=== PATIENT | female | born 1940 | race Caucasian/White ===

== ENCOUNTER 2017-09-22 05:19 | Inpatient (IN) | payer MEDICARE, BC ==
[2017-09-22] MEDS ORDERED: ceFAZolin 2 GM in Premix Bag 1 BAG IV ONE ×2 (06:00)
[2017-09-22] MEDS ORDERED: Acetaminophen 500 MG Tab PO ONE (06:00)
[2017-09-22] MEDS ORDERED: Scopolamine 1.5 MG Transdermal Patch TOP SCH (06:00)
[2017-09-22] MEDS: Lactated Ringers 1,000 ML IV SCH ×2 (06:36→10:04)
[2017-09-22] MEDS ORDERED: Povidone-Iodine 10% Soln 118.25 ML Bottle ONE (06:49)
[2017-09-22] MEDS ORDERED: Gentamicin 40 MG/ML 2 ML Vial ONE (06:49)
[2017-09-22] MEDS ORDERED: Propofol 200 MG/20 ML SDV ONE ×2 (07:19→08:34)
[2017-09-22] MEDS ORDERED: fentaNYL 100 MCG/2 ML SDV ONE (07:19)
[2017-09-22] MEDS ORDERED: Midazolam 1 MG/ML 2 ML SDV ONE (07:19)
[2017-09-22] MEDS ORDERED: Ropivacaine 49.25 ML, Ketorolac 30 MG, EPINEPHrine 0.5 MG, cloNIDine 80 MCG, Sodium Chl... INJECT ONE ×5 (07:45)
[2017-09-22] MEDS ORDERED: Ketamine 500 MG/5 ML MDV IV SCH (07:45)
[2017-09-22] MEDS ORDERED: Tranexamic Acid 660 MG in Sodium Chloride 0.9% 50 ML IV SCH (07:45)
[2017-09-22] MEDS ORDERED: Lactated Ringers 1,000 ML ONE (08:00)
[2017-09-22] MEDS ORDERED: Magnesium Hydroxide 400 MG/5 ML Susp 30 ML Cup PO PRN (08:59)
[2017-09-22] MEDS ORDERED: Bisacodyl 5 MG Tab PO PRN ×2 (08:59→12:13)
[2017-09-22] MEDS ORDERED: Docusate Sodium 100 MG Cap PO PRN (08:59)
[2017-09-22] MEDS ORDERED: Zolpidem 5 MG Tab PO PRN ×2 (08:59→12:13)
[2017-09-22] MEDS ORDERED: diphenhydrAMINE 50 MG/ML SDV IVPUSH PRN ×2 (08:59→12:13)
[2017-09-22] MEDS ORDERED: Morphine 2 MG/ML Syringe IVPUSH PRN ×2 (08:59→12:13)
[2017-09-22] MEDS ORDERED: traMADol 50 MG Tab PO PRN (08:59)
[2017-09-22] MEDS ORDERED: Sennosides 8.6 MG Tab PO PRN ×2 (08:59→12:13)
[2017-09-22] MEDS ORDERED: Ondansetron 4 MG/2 ML SDV IVPUSH PRN ×2 (08:59→12:13)
[2017-09-22] MEDS ORDERED: Ketorolac 30 MG/ML SDV IVPUSH PRN (08:59)
[2017-09-22] MEDS ORDERED: Aluminum Hydroxide/Magnesium Hydroxide/Simethicone Susp 30 ML Cup PO PRN (08:59)
[2017-09-22] MEDS ORDERED: Naloxone 0.4 MG/ML SDV IVPUSH PRN ×2 (08:59→12:13)
[2017-09-22] MEDS ORDERED: Aspirin 325 MG Tab.EC PO SCH (09:00)
[2017-09-22] MEDS ORDERED: Ketorolac 60 MG/2 ML SDV IVPUSH SCH (09:00)
[2017-09-22] MEDS ORDERED: Acetaminophen 1,000 MG in Premix Bag 1 BAG IV SCH ×2 (09:00→12:30)
[2017-09-22] MEDS ORDERED: Lactated Ringers 1,000 ML IV SCH (09:00)
[2017-09-22] MEDS ORDERED: oxyCODONE 5 MG Tab PO PRN (09:04)
[2017-09-22] MEDS ORDERED: Tranexamic Acid 660 MG in Sodium Chloride 0.9% 50 ML IV ONE (09:45)
--- NOTE | 2017-09-22 10:09 | CR ---
Knee 1V or 2V Rt HISTORY: Postop COMPARISON: 01/01/2017 FINDINGS: Total right knee arthroplasty change. Small amount of fluid and gas in the suprapatellar bu rsa. Curvilinear bony density measuring 9 mm projected along the margin of the medial joint on the AP view. Impression: Right knee arthroplasty change excellent alignment.
[2017-09-22] MEDS ORDERED: Diazepam 5 MG Tab PO PRN (12:13)
[2017-09-22] MEDS: oxyCODONE 5 MG Tab PO PRN ×3 (12:33→23:43)
[2017-09-22] MEDS ORDERED: Ketorolac 30 MG/ML SDV IVPUSH SCH (14:00)
[2017-09-22] MEDS: Sodium Chloride 0.9% 10 ML Syringe FLUSH SCH (15:32)
--- NOTE | 2017-09-22 17:04 | OR ---
DATE OF PROCEDURE: 09/22/2017 PREOPERATIVE DIAGNOSIS: Right knee primary osteoarthritis. POSTOPERATIVE DIAGNOSIS: Right knee primary osteoarthritis. PROCEDURE PERFORMED: Right total knee arthroplasty. ANESTHESIA: Spinal plus conscious sedation. FLUID: Lactated Ringer solution. ESTIMATED BLOOD LOSS: 150 mL. COMPLICATIONS: None. SPECIMENS: None. DISPOSITION: Stable, to PACU. TOURNIQUET TIME: 36 minutes. INSTRUMENTATION: Biomet Vanguard 75 mm fixed cruciate tibial plate, Series EA standard patella 37 mm x 10 mm, anterior stabilized tibial bearing polyethylene 12 mm x 75 mm, and cruciate-retaining femur 70 mm. INDICATION FOR PROCEDURE: The patient was seen in the clinic. She had failed nonoperative treatment. Preoperative imaging confirmed the above-mentioned diagnosis. Risks and benefits of the procedure were explained to the patient. Informed consent was obtained. PROCEDURE IN DETAIL: The patient was seen preoperatively by myself and the anesthesia staff in the preop holding area where the operative site was marked. She was brought to the operative suite by the anesthesia staff where spinal anesthesia was administered plus conscious sedation. A well-padded tourniquet was placed on the right thigh. The right lower extremity was then prepped and draped in a sterile manner. All extremities were found to be well padded. A time-out was called, identifying the correct patient, correct procedure, the correct site, and that antibiotics had begun within an appropriate period of time. The right lower extremity was exsanguinated and the tourniquet was raised to 300 mmHg for 36 minutes and let down during cementing. A midline incision was made 3 fingerbreadths proximal to the patella down to the level of the tibial tubercle. Then, a medial parapatellar arthrotomy was made. The infrapatellar fat pad was removed, as well as a synovectomy was performed, and as much of the medial and lateral meniscus that could be removed were removed. The anterior cruciate ligament was removed. Bovie electrocautery was used to expose the medial tibia. The femur was flexed, and the distal femur was reamed. I then used the intramedullary guide at 5-degree valgus, 9 degree of distal cut, and pinned it in place. I then removed the guide. I then made my distal cut. I then removed the pins. We then used a posterior condylar guide at 3 degrees valgus and pinned that in place. This measured 70 mm. The holes for the chamfer block were drilled. I then inserted the chamfer block and made my anterior and posterior chamfer cuts. I then anteriorized the tibia using a blunt Hohmann and protected the medial collateral ligament with a zero retractor and lateral collateral ligament with sharp Hohmann. I then made my proximal tibial cut using the extramedullary tibial guide, going from the tibial tubercle down to the 2nd metatarsal with approximately 5 degrees posterior slope. I removed this in one en bloc. We then removed some extra ligamentous attachments. I then prepared the tibia by placing the baseplate and then reaming and tamping. We then placed on our femur and then trialed with a 10 and then a 12 which provided good stability in flexion and extension as well as mid flexion. We then removed all of our components, and then I used a lamina packager or packer and weigher medially and laterally and removed the posterior condyles. After the posterior condylar osteophytes were removed, I then removed part of the medial and lateral meniscus posteriorly, then copiously irrigated with saline, then cemented my components in place, and then let it dry in full extension with a 12 mm trial polyethylene bearing. After the cement had hardened, we then controlled any bleeding with Bovie electrocautery, and then I removed any extra cement. I then inserted my final 12 mm polyethylene bearing which provided excellent stability. We then irrigated again and then closed with two #5 Ethibond as well as #1 Stratafix and #2 Stratafix and Prineo followed by a sterile dressing. The patient was then transferred to the PACU in stable condition. Galen Galindo DO /[id number]
[2017-09-22] MEDS: traMADol 50 MG Tab PO PRN (20:59)
[2017-09-22] MEDS: Acetaminophen 1,000 MG in Premix Bag 1 BAG IV SCH (21:00)
[2017-09-22] MEDS: Ketorolac 30 MG/ML SDV IVPUSH SCH (23:38)
[2017-09-23] MEDS: Acetaminophen 1,000 MG in Premix Bag 1 BAG IV SCH ×2 (03:47→09:39)
[2017-09-23] MEDS: Ketorolac 30 MG/ML SDV IVPUSH SCH ×2 (07:50→18:09)
[2017-09-23] MEDS: Sodium Chloride 0.9% 10 ML Syringe FLUSH SCH ×2 (07:51→09:38)
[2017-09-23] MEDS ORDERED: Ondansetron 4 MG Tab.DIS PO PRN (08:29)
[2017-09-23] MEDS: Magnesium Hydroxide 400 MG/5 ML Susp 30 ML Cup PO PRN (09:34)
[2017-09-23] MEDS: Lisinopril 20 MG Tab PO SCH (09:35)
[2017-09-23] MEDS: Hydrochlorothiazide 12.5 MG Cap PO SCH (09:38)
[2017-09-23] MEDS: Aspirin 325 MG Tab.EC PO SCH (09:38)
--- NOTE | 2017-09-23 09:43 | PCM.PN ---
- General Info Date of Service: 09/23/17 Functional Status: Reports: Pain Controlled, Tolerating Diet, Ambulating - Review of Systems General: Denies: Fever Pulmonary: Denies: Shortness of Breath Systems Review Comment:: no acute events overnight other than some very mild confusion. She reports no pain in her knee when she is at rest and moderate pain with activity. No complaints of shortness of breath, chest pain or abdominal pain. Vitals have been stable. - Patient Data Vitals - Most Recent: Last Vital Signs Temp 36.8 C 09/23/17 07:30 Pulse 71 09/23/17 07:30 Resp 16 09/23/17 07:30 BP 136/69 09/23/17 09:40 Pulse Ox 97 09/23/17 07:31 Weight - Most Recent: 62.596 kg I&O - Last 24 Hours: Intake & Output 09/22/17 09/23/17 09/23/17 22:59 06:59 14:59 Intake Total 683 100 720 Output Total 700 550 Balance -17 -450 720 Lab Results Last 24 Hours: Laboratory Results - last 24 hr 09/23/17 09/23/17 Range/Units 06:01 06:01 WBC 9.4 (4.5-11.0) K/uL RBC 3.42 (3.30-5.50) M/uL Hgb 10.2 L D (12.0-15.0) g/dL Hct 30.9 L (36.0-48.0) % MCV 90 (80-98) fL MCH 30 (27-31) pg MCHC 33 (32-36) % Plt Count 187 (150-400) K/uL Neut % (Auto) 69 H (36-66) % Lymph % (Auto) 18 L (24-44) % [place] % (Auto) 12 H (2-6) % Eos % (Auto) 1 L (2-4) % Baso % (Auto) 0 (0-1) % Sodium 136 L (140-148) mmol/L Potassium 4.2 (3.6-5.2) mmol/L Chloride 103 (100-108) mmol/L Carbon Dioxide 28 (21-32) mmol/L Anion Gap 9.2 (5.0-14.0) mmol/L BUN 10 (7-18) mg/dL Creatinine 0.9 (0.6-1.0) mg/dL Est Cr Clr Drug Dosing 45.92 mL/min Estimated GFR (MDRD) > 60 (>60) Glucose 108 H (74-106) mg/dL Calcium 8.6 (8.5-10.1) mg/dL Total Bilirubin 0.6 (0.2-1.0) mg/dL AST 31 (15-37) U/L ALT 27 D (12-78) U/L Alkaline Phosphatase 47 (46-116) U/L Total Protein 5.3 L (6.4-8.2) g/dL Albumin 2.8 L (3.4-5.0) g/dL Globulin 2.5 (2.3-3.5) g/dL Albumin/Globulin Ratio 1.1 L (1.2-2.2) Med Orders - Current: Current Medications Al Hydroxide/Mg Hydroxide (Mag-Al Plus) 30 ml PO Q4H PRN PRN Reason: Constipation Aspirin (Ecotrin) 325 mg PO DAILY [facility] Last Admin: 09/23/17 09:38 Dose: 325 mg Bisacodyl (Dulcolax) 10 mg PO DAILY PRN PRN Reason: Constipation Last Admin: 09/23/17 09:34 Dose: 10 mg Diazepam (Valium.) 5 mg PO Q6H PRN PRN Reason: Spasms Last Admin: 09/23/17 08:12 Dose: 5 mg Diphenhydramine HCl (Benadryl) 25 mg IVPUSH Q4H PRN PRN Reason: Itching Docusate Sodium (Colace) 100 mg PO BID PRN PRN Reason: Constipation Hydrochlorothiazide (Hydrochlorothiazide) 12.5 mg PO DAILY [facility] Last Admin: 09/23/17 09:38 Dose: 12.5 mg Lactated Ringer's (Ringers, Lactated) 1,000 mls @ 100 mls/hr IV ASDIRECTED [facility] Last Admin: 09/22/17 16:18 Dose: 100 mls/hr Acetaminophen 1,000 mg/ Premix 100 mls @ 400 mls/hr IV Q6H [facility] Stop: 09/23/17 10:14 Last Admin: 09/23/17 09:39 Dose: Not Given Ketorolac Tromethamine (Toradol) 15 mg IVPUSH Q8H PRN PRN Reason: Pain Stop: 09/27/17 18:00 Ketorolac Tromethamine (Toradol) 15 mg IVPUSH Q8H [facility] Stop: 09/23/17 15:31 Last Admin: 09/23/17 07:50 Dose: 15 mg Lisinopril (Prinivil) 20 mg PO DAILY [facility] Last Admin: 09/23/17 09:35 Dose: 20 mg Magnesium Hydroxide (Milk Of Magnesia) 30 ml PO BID PRN PRN Reason: Constipation Last Admin: 09/23/17 09:34 Dose: 30 ml Morphine Sulfate (Morphine) 2 mg IVPUSH Q2H PRN PRN Reason: Pain Naloxone HCl (Narcan) 0.1 mg IVPUSH ONETIME PRN PRN Reason: Oversedation Ondansetron HCl (Zofran) 8 mg IVPUSH Q4H PRN PRN Reason: Nausea/Vomiting Ondansetron HCl (Zofran Odt) 4 mg PO Q4H PRN PRN Reason: Nausea/Vomiting Oxycodone HCl (Oxycodone) 5 mg PO Q4H PRN PRN Reason: Pain Last Admin: 09/22/17 23:43 Dose: 5 mg Scopolamine (Transderm-Scop) 1.5 mg TOP Q72H [facility] Stop: 09/25/17 04:00 Last Admin: 09/22/17 06:03 Dose: 1.5 mg Senna (Senna) 8.6 mg PO BID PRN PRN Reason: Constipation Sodium Chloride (Saline Flush) 10 ml FLUSH DAILY [facility] Last Admin: 09/23/17 09:38 Dose: Not Given Tramadol HCl (Ultram) 100 mg PO Q6H PRN PRN Reason: Pain Last Admin: 09/22/17 20:59 Dose: 100 mg Zolpidem Tartrate (Ambien) 5 mg PO BEDTIME PRN PRN Reason: Sleep Discontinued Medications Acetaminophen (Tylenol Extra Strength) 1,000 mg PO ONETIME ONE Stop: 09/22/17 06:01 Last Admin: 09/22/17 06:02 Dose: 1,000 mg Aspirin (Ecotrin) 325 mg PO DAILY [facility] Last Admin: 09/22/17 15:35 Dose: Not Given Bisacodyl (Dulcolax) 10 mg PO DAILY PRN PRN Reason: Constipation Ropivacaine 49.25 ml/Ketorolac Tromethamine 30 mg/Epinephrine HCl 0.5 mg/ Clonidine HCl 80 mcg/ Sodium Chloride 48.45 ml 0 ml INJECT ONETIME ONE Stop: 09/22/17 07:46 Last Admin: 09/22/17 08:04 Dose: 100 ml Diazepam (Valium) 5 mg IVPUSH Q6H PRN PRN Reason: Spasms Diphenhydramine HCl (Benadryl) 25 mg IVPUSH Q4H PRN PRN Reason: Itching Fentanyl (Sublimaze) Confirm Administered Dose 100 mcg .ROUTE .STK-MED ONE Stop: 09/22/17 07:20 Gentamicin Sulfate (Gentamicin) Confirm Administered Dose 240 mg .ROUTE .STK- MED ONE Stop: 09/22/17 06:50 Last Admin: 09/22/17 08:40 Dose: 240 mg Lactated Ringer's (Ringers, Lactated) 1,000 mls @ 0 mls/hr IV ASDIRECTED [facility] PRN Reason: KVO Last Admin: 09/22/17 10:04 Dose: 25 mls/hr Cefazolin Sodium 2 gm/ Premix 20 mls @ 240 mls/hr IV ONETIME ONE Stop: 09/22/17 06:04 Last Admin: 09/22/17 08:03 Dose: 240 mls/hr Tranexamic Acid 660 mg/ Sodium (Chloride) 56.6 mls @ 226.4 mls/hr IV Q3H [facility] Stop: 09/22/17 10:59 Last Admin: 09/22/17 07:20 Dose: 226.4 mls/hr Lactated Ringer's (Ringers, Lactated) Confirm Administered Dose 1,000 mls @ as directed .ROUTE .STK-MED ONE Stop: 09/22/17 08:01 Acetaminophen 1,000 mg/ Premix 100 mls @ 400 mls/hr IV Q6H [facility] Stop: 09/23/17 03:14 Last Admin: 09/22/17 15:35 Dose: Not Given Tranexamic Acid 660 mg/ Sodium (Chloride) 56.6 mls @ 226.4 mls/hr IV ONETIME ONE Stop: 09/22/17 09:59 Last Admin: 09/22/17 09:33 Dose: 226.4 mls/hr Acetaminophen 1,000 mg/ Premix 100 mls @ 400 mls/hr IV Q6H [facility] Stop: 09/23/17 06:44 Last Admin: 09/22/17 15:40 Dose: 400 mls/hr Ketamine HCl (Ketalar) 27 mg IV ASDIRECTED [facility] Ketorolac Tromethamine (Toradol) 30 mg IVPUSH Q8H PRN PRN Reason: Pain Stop: 09/27/17 08:59 Ketorolac Tromethamine (Toradol) 30 mg IVPUSH Q8H [facility] Stop: 09/23/17 09:01 Last Admin: 09/22/17 15:35 Dose: Not Given Ketorolac Tromethamine (Toradol) 15 mg IVPUSH Q8H [facility] Stop: 09/23/17 14:01 Last Admin: 09/22/17 15:33 Dose: 15 mg Magnesium Hydroxide (Milk Of Magnesia) 30 ml PO BID PRN PRN Reason: Constipation Midazolam HCl (Versed 1 Mg/Ml) Confirm Administered Dose 2 mg .ROUTE .STK-MED ONE Stop: 09/22/17 07:20 Morphine Sulfate (Morphine) 2 mg IVPUSH Q2H PRN PRN Reason: Pain Naloxone HCl (Narcan) 0.1 mg IVPUSH ONETIME PRN PRN Reason: Oversedation Ondansetron HCl (Zofran) 8 mg IVPUSH Q4H PRN PRN Reason: Nausea/Vomiting Oxycodone HCl (Oxycodone) 5 mg PO Q4H PRN PRN Reason: Pain Povidone Iodine (Betadine 10% Soln) Confirm Administered Dose 1 ml .ROUTE .STK- MED ONE Stop: 09/22/17 06:50 Last Admin: 09/22/17 08:42 Dose: 1 ml Propofol (Diprivan 20 Ml) Confirm Administered Dose 200 mg .ROUTE .STK-MED ONE Stop: 09/22/17 07:20 Propofol (Diprivan 20 Ml) Confirm Administered Dose 200 mg .ROUTE .STK-MED ONE Stop: 09/22/17 08:35 Senna (Senna) 8.6 mg PO BID PRN PRN Reason: Constipation Tramadol HCl (Ultram) 100 mg PO Q6H PRN PRN Reason: Pain Zolpidem Tartrate (Ambien) 5 mg PO BEDTIME PRN PRN Reason: Sleep - Exam Quality Assessment: No: Supplemental Oxygen General: Alert, Oriented, Cooperative, No Acute Distress Neck: Supple Lungs: Clear to Auscultation, Normal Respiratory Effort Cardiovascular: Regular Rate, Regular Rhythm. No: Murmurs GI/Abdominal Exam: Normal Bowel Sounds, Soft, No Distention Extremities: No Pedal Edema, Other (right knee wrapped in PATT from ankle to above the knee. Able to wiggle the toes and move ankle with normal ROM) Psy/Mental Status: Alert, Normal Affect - Problem List Review Problem List Initiated/Reviewed/Updated: Yes - Plan Plan:: ASSESSMENT AND PLAN - Right knee osteoarthritis status post total knee arthroplasty - clinically doing well at this time. Working with physical therapy. Pain controlled. -Postop cares per orthopedic team Essential hypertension - blood pressure stable yesterday with slight rise this morning. -Restart home meds Denis Guerra M.D.
[2017-09-23] MEDS: oxyCODONE 5 MG Tab PO PRN ×3 (10:58→19:39)
[2017-09-23] MEDS ORDERED: Ketorolac 30 MG/ML SDV IVPUSH PRN (22:00)
[2017-09-24] MEDS: oxyCODONE 5 MG Tab PO PRN ×4 (00:32→20:51)
[2017-09-24] MEDS: Magnesium Hydroxide 400 MG/5 ML Susp 30 ML Cup PO PRN (08:20)
[2017-09-24] MEDS: Hydrochlorothiazide 12.5 MG Cap PO SCH (09:41)
[2017-09-24] MEDS: Lisinopril 20 MG Tab PO SCH (09:41)
[2017-09-24] MEDS: Aspirin 325 MG Tab.EC PO SCH (09:41)
[2017-09-24] MEDS: traMADol 50 MG Tab PO PRN ×2 (10:17→20:55)
--- NOTE | 2017-09-24 11:07 | PCM.PN ---
- General Info Date of Service: 09/24/17 Admission Dx/Problem (Free Text): patient is status postop day 2 of left total knee replacement. She is doing very well. Patient continues to request PT OT for strengthening. She does have some pain with ambulation. She is concerned still regarding pain being at home by herself and ambulating without any assistance at this time. Patient continues to plan to go to a long-term after her stay. Functional Status: Reports: Pain Controlled, Tolerating Diet, Ambulating, Urinating - Review of Systems General: Reports: No Symptoms Skin: Reports: No Symptoms - Patient Data Vitals - Most Recent: Last Vital Signs Temp 36.6 C 09/24/17 07:00 Pulse 79 09/24/17 07:00 Resp 16 09/24/17 07:00 BP 157/65 H 09/24/17 09:41 Pulse Ox 97 09/24/17 07:00 Weight - Most Recent: 138 lb 0.009 oz I&O - Last 24 Hours: Intake & Output 09/23/17 09/24/17 09/24/17 22:59 06:59 14:59 Intake Total 240 480 320 Output Total 950 350 550 Balance -710 130 -230 Lab Results Last 24 Hours: Laboratory Results - last 24 hr 09/24/17 09/24/17 Range/Units 05:00 05:00 WBC 10.0 (4.5-11.0) K/uL RBC 3.26 L (3.30-5.50) M/uL Hgb 9.6 L (12.0-15.0) g/dL Hct 29.2 L (36.0-48.0) % MCV 90 (80-98) fL MCH 29 (27-31) pg MCHC 33 (32-36) % Plt Count 179 (150-400) K/uL Neut % (Auto) 69 H (36-66) % Lymph % (Auto) 16 L (24-44) % [place] % (Auto) 14 H (2-6) % Eos % (Auto) 0 L (2-4) % Baso % (Auto) 0 (0-1) % Sodium 136 L (140-148) mmol/L Potassium 3.7 (3.6-5.2) mmol/L Chloride 103 (100-108) mmol/L Carbon Dioxide 29 (21-32) mmol/L Anion Gap 7.7 (5.0-14.0) mmol/L BUN 9 (7-18) mg/dL Creatinine 0.8 (0.6-1.0) mg/dL Est Cr Clr Drug Dosing 52.04 mL/min Estimated GFR (MDRD) > 60 (>60) Glucose 111 H (74-106) mg/dL Calcium 8.5 (8.5-10.1) mg/dL Total Bilirubin 0.5 (0.2-1.0) mg/dL AST 30 (15-37) U/L ALT 25 (12-78) U/L Alkaline Phosphatase 46 (46-116) U/L Total Protein 5.3 L (6.4-8.2) g/dL Albumin 2.6 L (3.4-5.0) g/dL Globulin 2.7 (2.3-3.5) g/dL Albumin/Globulin Ratio 1.0 L (1.2-2.2) Med Orders - Current: Current Medications Al Hydroxide/Mg Hydroxide (Mag-Al Plus) 30 ml PO Q4H PRN PRN Reason: Constipation Aspirin (Ecotrin) 325 mg PO DAILY [facility] Last Admin: 09/24/17 09:41 Dose: 325 mg Bisacodyl (Dulcolax) 10 mg PO DAILY PRN PRN Reason: Constipation Last Admin: 09/23/17 09:34 Dose: 10 mg Diazepam (Valium.) 5 mg PO Q6H PRN PRN Reason: Spasms Last Admin: 09/23/17 08:12 Dose: 5 mg Docusate Sodium (Colace) 100 mg PO BID PRN PRN Reason: Constipation Last Admin: 09/24/17 08:20 Dose: 100 mg Hydrochlorothiazide (Hydrochlorothiazide) 12.5 mg PO DAILY [facility] Last Admin: 09/24/17 09:41 Dose: 12.5 mg Lisinopril (Prinivil) 20 mg PO DAILY [facility] Last Admin: 09/24/17 09:41 Dose: 20 mg Magnesium Hydroxide (Milk Of Magnesia) 30 ml PO BID PRN PRN Reason: Constipation Last Admin: 09/24/17 08:20 Dose: 30 ml Ondansetron HCl (Zofran Odt) 4 mg PO Q4H PRN PRN Reason: Nausea/Vomiting Oxycodone HCl (Oxycodone) 5 mg PO Q4H PRN PRN Reason: Pain Last Admin: 09/24/17 08:20 Dose: 5 mg Senna (Senna) 8.6 mg PO BID PRN PRN Reason: Constipation Tramadol HCl (Ultram) 100 mg PO Q6H PRN PRN Reason: Pain Last Admin: 09/24/17 10:17 Dose: 100 mg Zolpidem Tartrate (Ambien) 5 mg PO BEDTIME PRN PRN Reason: Sleep Discontinued Medications Acetaminophen (Tylenol Extra Strength) 1,000 mg PO ONETIME ONE Stop: 09/22/17 06:01 Last Admin: 09/22/17 06:02 Dose: 1,000 mg Aspirin (Ecotrin) 325 mg PO DAILY [facility] Last Admin: 09/22/17 15:35 Dose: Not Given Bisacodyl (Dulcolax) 10 mg PO DAILY PRN PRN Reason: Constipation Ropivacaine 49.25 ml/Ketorolac Tromethamine 30 mg/Epinephrine HCl 0.5 mg/ Clonidine HCl 80 mcg/ Sodium Chloride 48.45 ml 0 ml INJECT ONETIME ONE Stop: 09/22/17 07:46 Last Admin: 09/22/17 08:04 Dose: 100 ml Diazepam (Valium) 5 mg IVPUSH Q6H PRN PRN Reason: Spasms Diphenhydramine HCl (Benadryl) 25 mg IVPUSH Q4H PRN PRN Reason: Itching Diphenhydramine HCl (Benadryl) 25 mg IVPUSH Q4H PRN PRN Reason: Itching Fentanyl (Sublimaze) Confirm Administered Dose 100 mcg .ROUTE .STK-MED ONE Stop: 09/22/17 07:20 Gentamicin Sulfate (Gentamicin) Confirm Administered Dose 240 mg .ROUTE .STK- MED ONE Stop: 09/22/17 06:50 Last Admin: 09/22/17 08:40 Dose: 240 mg Lactated Ringer's (Ringers, Lactated) 1,000 mls @ 0 mls/hr IV ASDIRECTED [facility] PRN Reason: KVO Last Admin: 09/22/17 10:04 Dose: 25 mls/hr Cefazolin Sodium 2 gm/ Premix 20 mls @ 240 mls/hr IV ONETIME ONE Stop: 09/22/17 06:04 Last Admin: 09/22/17 08:03 Dose: 240 mls/hr Tranexamic Acid 660 mg/ Sodium (Chloride) 56.6 mls @ 226.4 mls/hr IV Q3H [facility] Stop: 09/22/17 10:59 Last Admin: 09/22/17 07:20 Dose: 226.4 mls/hr Lactated Ringer's (Ringers, Lactated) Confirm Administered Dose 1,000 mls @ as directed .ROUTE .STK-MED ONE Stop: 09/22/17 08:01 Acetaminophen 1,000 mg/ Premix 100 mls @ 400 mls/hr IV Q6H [facility] Stop: 09/23/17 03:14 Last Admin: 09/22/17 15:35 Dose: Not Given Lactated Ringer's (Ringers, Lactated) 1,000 mls @ 100 mls/hr IV ASDIRECTED [facility] Last Admin: 09/22/17 16:18 Dose: 100 mls/hr Tranexamic Acid 660 mg/ Sodium (Chloride) 56.6 mls @ 226.4 mls/hr IV ONETIME ONE Stop: 09/22/17 09:59 Last Admin: 09/22/17 09:33 Dose: 226.4 mls/hr Acetaminophen 1,000 mg/ Premix 100 mls @ 400 mls/hr IV Q6H [facility] Stop: 09/23/17 06:44 Last Admin: 09/22/17 15:40 Dose: 400 mls/hr Acetaminophen 1,000 mg/ Premix 100 mls @ 400 mls/hr IV Q6H [facility] Stop: 09/23/17 10:14 Last Admin: 09/23/17 09:39 Dose: Not Given Ketamine HCl (Ketalar) 27 mg IV ASDIRECTED [facility] Ketorolac Tromethamine (Toradol) 30 mg IVPUSH Q8H PRN PRN Reason: Pain Stop: 09/27/17 08:59 Ketorolac Tromethamine (Toradol) 30 mg IVPUSH Q8H [facility] Stop: 09/23/17 09:01 Last Admin: 09/22/17 15:35 Dose: Not Given Ketorolac Tromethamine (Toradol) 15 mg IVPUSH Q8H PRN PRN Reason: Pain Stop: 09/27/17 18:00 Ketorolac Tromethamine (Toradol) 15 mg IVPUSH Q8H [facility] Stop: 09/23/17 14:01 Last Admin: 09/22/17 15:33 Dose: 15 mg Ketorolac Tromethamine (Toradol) 15 mg IVPUSH Q8H [facility] Stop: 09/23/17 15:31 Last Admin: 09/23/17 18:09 Dose: Not Given Magnesium Hydroxide (Milk Of Magnesia) 30 ml PO BID PRN PRN Reason: Constipation Midazolam HCl (Versed 1 Mg/Ml) Confirm Administered Dose 2 mg .ROUTE .STK-MED ONE Stop: 09/22/17 07:20 Morphine Sulfate (Morphine) 2 mg IVPUSH Q2H PRN PRN Reason: Pain Morphine Sulfate (Morphine) 2 mg IVPUSH Q2H PRN PRN Reason: Pain Naloxone HCl (Narcan) 0.1 mg IVPUSH ONETIME PRN PRN Reason: Oversedation Naloxone HCl (Narcan) 0.1 mg IVPUSH ONETIME PRN PRN Reason: Oversedation Ondansetron HCl (Zofran) 8 mg IVPUSH Q4H PRN PRN Reason: Nausea/Vomiting Ondansetron HCl (Zofran) 8 mg IVPUSH Q4H PRN PRN Reason: Nausea/Vomiting Oxycodone HCl (Oxycodone) 5 mg PO Q4H PRN PRN Reason: Pain Povidone Iodine (Betadine 10% Soln) Confirm Administered Dose 1 ml .ROUTE .STK- MED ONE Stop: 09/22/17 06:50 Last Admin: 09/22/17 08:42 Dose: 1 ml Propofol (Diprivan 20 Ml) Confirm Administered Dose 200 mg .ROUTE .STK-MED ONE Stop: 09/22/17 07:20 Propofol (Diprivan 20 Ml) Confirm Administered Dose 200 mg .ROUTE .STK-MED ONE Stop: 09/22/17 08:35 Scopolamine (Transderm-Scop) 1.5 mg TOP Q72H [facility] Stop: 09/25/17 04:00 Last Admin: 09/22/17 06:03 Dose: 1.5 mg Senna (Senna) 8.6 mg PO BID PRN PRN Reason: Constipation Sodium Chloride (Saline Flush) 10 ml FLUSH DAILY [facility] Last Admin: 09/23/17 09:38 Dose: Not Given Tramadol HCl (Ultram) 100 mg PO Q6H PRN PRN Reason: Pain Zolpidem Tartrate (Ambien) 5 mg PO BEDTIME PRN PRN Reason: Sleep - Exam General: Alert, Oriented Extremities: Normal Inspection, Normal Range of Motion, No Pedal Edema, Pedal Edema Peripheral Pulses: 2+: Dorsalis Pedis (L), Dorsalis Pedis (R) Skin: Warm, Dry, Intact Wound/Incisions: Healing Well, Dressing Dry and Intact Neurological: No New Focal Deficit - Problem List Review Problem List Initiated/Reviewed/Updated: Yes - Plan Plan:: ASSESSMENT AND PLAN - Right knee osteoarthritis status post total knee arthroplasty - clinically doing well at this time. Working with physical therapy. Pain controlled. -we'll plan to send her to a [facility] facility tomorrow due to her being at home by herself. Patient was in agreement with this plan will follow-up tomorrow.
[2017-09-25] MEDS: traMADol 50 MG Tab PO PRN (06:54)
[2017-09-25 07:55] VITALS: BP 118/56
--- NOTE | 2017-09-25 07:57 | PCM.DCSUM1 ---
Discharge Summary - Hospital Course Free Text/Narrative:: Patient is Satus POD 3 of a right total knee replacement. She is doing well. She lives at home by herself and is being dcd to correction today. Pain is under control with oral pain medication at this time. - Discharge Data Discharge Date: 09/25/17 Discharge Disposition: DC/Tfer to SNF 03 Condition: Good - Patient Summary/Data Consults: Consultations 09/22/17 08:59 Consult to Physician [CONS] Routine Consulting Provider: Denis Guerra Call Completed to Consulting Physician: Yes OT Evaluation and Treatment [CONS] Routine Please Evaluate and Treat. OT Reason for Consult: Strengthening This query below is only for informational purposes and is not editable. PT Evaluation and Treatment [CONS] Routine Please Evaluate and Treat. PT Reason for Consult: Strengthening This query below is only for informational purposes and is not editable. Respiratory Care Assess and Treatment [CONS] Routine Comment: Physician Instructions: Post-op Pneumonia Prevention - Patient Instructions Diet: Usual Diet as Tolerated Activity: Apply Ice, As Tolerated Driving: Do Not Drive Showering/Bathing: May Shower, No Tub Bathing/Swimming Wound/Incision Care: Keep Operative Site/Wound Site Clean and Dry Notify Provider of: Fever, Increased Pain, Swelling and Redness, Drainage, Nausea and/or Vomiting - Discharge Plan Prescriptions/Med Rec: Aspirin [Ecotrin] 325 mg PO DAILY #30 tab.ec oxyCODONE 5 mg PO Q4H PRN #60 tablet PRN Reason: Pain traMADol [Ultram] 100 mg PO Q6H PRN #60 tablet PRN Reason: Pain Home Medications: Home Meds Aspirin 81 mg PO DAILY 12/23/16 [History] Calcium Carbonate/Vitamin D3 [Calcium 600 + Vit D 200] 1 tab PO DAILY 12/23/16 [ History] Glucosam/Chondroit/C/Manganese [Cosamin Ds Capsule] 1 tab PO BID 12/23/16 [ History] Lisinopril/Hydrochlorothiazide [Lisinopril-Hctz 20-12.5 mg Tab] 1 tab PO DAILY 12/23/16 [History] Multivitamin [Multivitamins] 1 tab PO DAILY 12/23/16 [History] Niacin 1 tab PO BID 12/23/16 [History] Triamcinolone Acetonide [Kenalog 0.1% Crm] 1 strip TOP BID 12/23/16 [History] Vitamin B Complex [B Complex] 1 tab PO DAILY 12/23/16 [History] Acetaminophen [Extra Strength Non-Aspirin] 1,000 mg PO BID PRN 09/22/17 [History ] Aspirin [Ecotrin] 325 mg PO DAILY #30 tab.ec 09/25/17 [Rx] oxyCODONE 5 mg PO Q4H PRN #60 tablet 09/25/17 [Rx] traMADol [Ultram] 100 mg PO Q6H PRN #60 tablet 09/25/17 [Rx] Patient Handouts: Total Knee Replacement, Care After, [id number] - Discharge Summary/Plan Comment DC Time >30 min.: Yes Discharge Summary/Plan Comment: Patient will be dcd to correction today. She is to follow up in 2 weeks with the ortho clinic. She is to take ultram and oxycodone as needed. - Patient Data Vitals - Most Recent: Last Vital Signs Temp 36.9 C 09/25/17 02:58 Pulse 87 09/25/17 02:58 Resp 16 09/25/17 02:58 BP 136/50 L 09/25/17 02:58 Pulse Ox 96 09/25/17 02:58 Weight - Most Recent: 138 lb 0.009 oz I&O - Last 24 hours: Intake & Output 09/24/17 09/25/17 09/25/17 22:59 06:59 14:59 Intake Total 240 240 Output Total 225 Balance -225 240 240 Lab Results - Last 24 hrs: Laboratory Results - last 24 hr 09/25/17 09/25/17 Range/Units 05:51 05:51 WBC 10.4 (4.5-11.0) K/uL RBC 3.13 L (3.30-5.50) M/uL Hgb 9.2 L (12.0-15.0) g/dL Hct 28.5 L (36.0-48.0) % MCV 91 (80-98) fL MCH 29 (27-31) pg MCHC 32 (32-36) % Plt Count 170 (150-400) K/uL Neut % (Auto) 66 (36-66) % Lymph % (Auto) 16 L (24-44) % [place] % (Auto) 17 H (2-6) % Eos % (Auto) 1 L (2-4) % Baso % (Auto) 0 (0-1) % Sodium 136 L (140-148) mmol/L Potassium 4.0 (3.6-5.2) mmol/L Chloride 102 (100-108) mmol/L Carbon Dioxide 30 (21-32) mmol/L Anion Gap 8.0 (5.0-14.0) mmol/L BUN 13 (7-18) mg/dL Creatinine 0.8 (0.6-1.0) mg/dL Est Cr Clr Drug Dosing 52.04 mL/min Estimated GFR (MDRD) > 60 (>60) Glucose 94 (74-106) mg/dL Calcium 8.3 L (8.5-10.1) mg/dL Total Bilirubin 0.6 (0.2-1.0) mg/dL AST 40 H (15-37) U/L ALT 34 (12-78) U/L Alkaline Phosphatase 48 (46-116) U/L Total Protein 5.3 L (6.4-8.2) g/dL Albumin 2.4 L (3.4-5.0) g/dL Globulin 2.9 (2.3-3.5) g/dL Albumin/Globulin Ratio 0.8 L (1.2-2.2) Med Orders - Current: Current Medications Al Hydroxide/Mg Hydroxide (Mag-Al Plus) 30 ml PO Q4H PRN PRN Reason: Constipation Aspirin (Ecotrin) 325 mg PO DAILY [facility] Last Admin: 09/24/17 09:41 Dose: 325 mg Bisacodyl (Dulcolax) 10 mg PO DAILY PRN PRN Reason: Constipation Last Admin: 09/23/17 09:34 Dose: 10 mg Diazepam (Valium.) 5 mg PO Q6H PRN PRN Reason: Spasms Last Admin: 09/23/17 08:12 Dose: 5 mg Docusate Sodium (Colace) 100 mg PO BID PRN PRN Reason: Constipation Last Admin: 09/24/17 08:20 Dose: 100 mg Hydrochlorothiazide (Hydrochlorothiazide) 12.5 mg PO DAILY [facility] Last Admin: 09/24/17 09:41 Dose: 12.5 mg Lisinopril (Prinivil) 20 mg PO DAILY [facility] Last Admin: 09/24/17 09:41 Dose: 20 mg Magnesium Hydroxide (Milk Of Magnesia) 30 ml PO BID PRN PRN Reason: Constipation Last Admin: 09/24/17 08:20 Dose: 30 ml Ondansetron HCl (Zofran Odt) 4 mg PO Q4H PRN PRN Reason: Nausea/Vomiting Oxycodone HCl (Oxycodone) 5 mg PO Q4H PRN PRN Reason: Pain Last Admin: 09/24/17 16:21 Dose: 5 mg Senna (Senna) 8.6 mg PO BID PRN PRN Reason: Constipation Tramadol HCl (Ultram) 100 mg PO Q6H PRN PRN Reason: Pain Last Admin: 09/25/17 06:54 Dose: 100 mg Zolpidem Tartrate (Ambien) 5 mg PO BEDTIME PRN PRN Reason: Sleep Discontinued Medications Acetaminophen (Tylenol Extra Strength) 1,000 mg PO ONETIME ONE Stop: 09/22/17 06:01 Last Admin: 09/22/17 06:02 Dose: 1,000 mg Aspirin (Ecotrin) 325 mg PO DAILY [facility] Last Admin: 09/22/17 15:35 Dose: Not Given Bisacodyl (Dulcolax) 10 mg PO DAILY PRN PRN Reason: Constipation Ropivacaine 49.25 ml/Ketorolac Tromethamine 30 mg/Epinephrine HCl 0.5 mg/ Clonidine HCl 80 mcg/ Sodium Chloride 48.45 ml 0 ml INJECT ONETIME ONE Stop: 09/22/17 07:46 Last Admin: 09/22/17 08:04 Dose: 100 ml Diazepam (Valium) 5 mg IVPUSH Q6H PRN PRN Reason: Spasms Diphenhydramine HCl (Benadryl) 25 mg IVPUSH Q4H PRN PRN Reason: Itching Diphenhydramine HCl (Benadryl) 25 mg IVPUSH Q4H PRN PRN Reason: Itching Fentanyl (Sublimaze) Confirm Administered Dose 100 mcg .ROUTE .STK-MED ONE Stop: 09/22/17 07:20 Gentamicin Sulfate (Gentamicin) Confirm Administered Dose 240 mg .ROUTE .STK- MED ONE Stop: 09/22/17 06:50 Last Admin: 09/22/17 08:40 Dose: 240 mg Lactated Ringer's (Ringers, Lactated) 1,000 mls @ 0 mls/hr IV ASDIRECTED [facility] PRN Reason: KVO Last Admin: 09/22/17 10:04 Dose: 25 mls/hr Cefazolin Sodium 2 gm/ Premix 20 mls @ 240 mls/hr IV ONETIME ONE Stop: 09/22/17 06:04 Last Admin: 09/22/17 08:03 Dose: 240 mls/hr Tranexamic Acid 660 mg/ Sodium (Chloride) 56.6 mls @ 226.4 mls/hr IV Q3H [facility] Stop: 09/22/17 10:59 Last Admin: 09/22/17 07:20 Dose: 226.4 mls/hr Lactated Ringer's (Ringers, Lactated) Confirm Administered Dose 1,000 mls @ as directed .ROUTE .STK-MED ONE Stop: 09/22/17 08:01 Acetaminophen 1,000 mg/ Premix 100 mls @ 400 mls/hr IV Q6H [facility] Stop: 09/23/17 03:14 Last Admin: 09/22/17 15:35 Dose: Not Given Lactated Ringer's (Ringers, Lactated) 1,000 mls @ 100 mls/hr IV ASDIRECTED [facility] Last Admin: 09/22/17 16:18 Dose: 100 mls/hr Tranexamic Acid 660 mg/ Sodium (Chloride) 56.6 mls @ 226.4 mls/hr IV ONETIME ONE Stop: 09/22/17 09:59 Last Admin: 09/22/17 09:33 Dose: 226.4 mls/hr Acetaminophen 1,000 mg/ Premix 100 mls @ 400 mls/hr IV Q6H [facility] Stop: 09/23/17 06:44 Last Admin: 09/22/17 15:40 Dose: 400 mls/hr Acetaminophen 1,000 mg/ Premix 100 mls @ 400 mls/hr IV Q6H [facility] Stop: 09/23/17 10:14 Last Admin: 09/23/17 09:39 Dose: Not Given Ketamine HCl (Ketalar) 27 mg IV ASDIRECTED [facility] Ketorolac Tromethamine (Toradol) 30 mg IVPUSH Q8H PRN PRN Reason: Pain Stop: 09/27/17 08:59 Ketorolac Tromethamine (Toradol) 30 mg IVPUSH Q8H [facility] Stop: 09/23/17 09:01 Last Admin: 09/22/17 15:35 Dose: Not Given Ketorolac Tromethamine (Toradol) 15 mg IVPUSH Q8H PRN PRN Reason: Pain Stop: 09/27/17 18:00 Ketorolac Tromethamine (Toradol) 15 mg IVPUSH Q8H [facility] Stop: 09/23/17 14:01 Last Admin: 09/22/17 15:33 Dose: 15 mg Ketorolac Tromethamine (Toradol) 15 mg IVPUSH Q8H [facility] Stop: 09/23/17 15:31 Last Admin: 09/23/17 18:09 Dose: Not Given Magnesium Hydroxide (Milk Of Magnesia) 30 ml PO BID PRN PRN Reason: Constipation Midazolam HCl (Versed 1 Mg/Ml) Confirm Administered Dose 2 mg .ROUTE .STK-MED ONE Stop: 09/22/17 07:20 Morphine Sulfate (Morphine) 2 mg IVPUSH Q2H PRN PRN Reason: Pain Morphine Sulfate (Morphine) 2 mg IVPUSH Q2H PRN PRN Reason: Pain Naloxone HCl (Narcan) 0.1 mg IVPUSH ONETIME PRN PRN Reason: Oversedation Naloxone HCl (Narcan) 0.1 mg IVPUSH ONETIME PRN PRN Reason: Oversedation Ondansetron HCl (Zofran) 8 mg IVPUSH Q4H PRN PRN Reason: Nausea/Vomiting Ondansetron HCl (Zofran) 8 mg IVPUSH Q4H PRN PRN Reason: Nausea/Vomiting Oxycodone HCl (Oxycodone) 5 mg PO Q4H PRN PRN Reason: Pain Povidone Iodine (Betadine 10% Soln) Confirm Administered Dose 1 ml .ROUTE .STK- MED ONE Stop: 09/22/17 06:50 Last Admin: 09/22/17 08:42 Dose: 1 ml Propofol (Diprivan 20 Ml) Confirm Administered Dose 200 mg .ROUTE .STK-MED ONE Stop: 09/22/17 07:20 Propofol (Diprivan 20 Ml) Confirm Administered Dose 200 mg .ROUTE .STK-MED ONE Stop: 09/22/17 08:35 Scopolamine (Transderm-Scop) 1.5 mg TOP Q72H [facility] Stop: 09/25/17 04:00 Last Admin: 09/22/17 06:03 Dose: 1.5 mg Senna (Senna) 8.6 mg PO BID PRN PRN Reason: Constipation Sodium Chloride (Saline Flush) 10 ml FLUSH DAILY [facility] Last Admin: 09/23/17 09:38 Dose: Not Given Tramadol HCl (Ultram) 100 mg PO Q6H PRN PRN Reason: Pain Zolpidem Tartrate (Ambien) 5 mg PO BEDTIME PRN PRN Reason: Sleep - Exam General: Reports: Alert, Oriented Back Exam: Reports: Normal Inspection Extremities: Normal Inspection Skin: Reports: Warm, Dry, Intact Wound/Incisions: Reports: Healing Well, Dressing Dry and Intact Neurological: Reports: No New Focal Deficit Psy/Mental Status: Reports: Alert *Q Meaningful Use (DIS) - VTE *Q VTE Criteria *Q: - Stroke *Q Stroke Criteria *Q: - AMI *Q AMI Criteria *Q:
[2017-09-25] MEDS: Hydrochlorothiazide 12.5 MG Cap PO SCH (08:39)
[2017-09-25] MEDS: Lisinopril 20 MG Tab PO SCH (08:39)
[2017-09-25] MEDS: Aspirin 325 MG Tab.EC PO SCH (08:39)
== END 2017-09-25 10:25 | DRG 470 ==
LOC: JP.MS 05:19 → JP.SDS 05:19 → JP.MS 10:03 → EDSTATUS 11:00
PROVIDERS: ADMIT Orthopaedic Surgery; ATTEND Orthopaedic Surgery
PROC: 0SRC0J9 Replacement of Right Knee Joint with Synthetic Substitute, Cemented, Open Approach (ICD-10-PCS; principal; 2017-09-22)
DX: M17.11 Unilateral primary osteoarthritis, right knee (principal); Z79.82 Long term (current) use of aspirin; I10 Essential (primary) hypertension
CPT/HCPCS: 36415; 73560-26-RT; 73560-RT; 80053; 85025; 94762; 97110-GP; 97116-GP; 97162-GP; 97165-GO; 97530-GP; 97535-GP; 97760-GP; A9270-GY; C1713; C1776; J0131; J0171; J0690; J0735; J1580; J1885; J2250; J2704; J2795; J3010; J7050; J7120

== ENCOUNTER 2017-11-01 18:05 | Emergency (ER) | payer MEDICARE, BC ==
[2017-11-01] MEDS ORDERED: Ondansetron 4 MG/2 ML SDV IVPUSH ONE (18:41)
[2017-11-01] MEDS ORDERED: Sodium Chloride 0.9% 10 ML Syringe FLUSH PRN (18:41)
[2017-11-01] MEDS ORDERED: Lactated Ringers 1,000 ML IV SCH ×2 (18:45→21:15)
--- NOTE | 2017-11-01 18:45 | EDM.PDOC ---
ED HPI GENERAL MEDICAL PROBLEM - General Chief Complaint: Gastrointestinal Problem Stated Complaint: DIARRHEA;DEHYDRATION Time Seen by Provider: 11/01/17 18:38 Source of Information: Reports: Patient, Family, RN Notes Reviewed History Limitations: Reports: No Limitations - History of Present Illness INITIAL COMMENTS - FREE TEXT/NARRATIVE: 77-year-old female presents to emergency department today complaint of nausea vomiting and diarrhea, she states she got ill mainly this morning did have pretty significant reflux this morning but that has improved complaints of a headache has not had any fevers no chest pain she does feel short of breath at times no sick contacts that she is aware of - Related Data Allergies Allergy/AdvReac Type Severity Reaction Status Date / Time No Known Allergies Allergy Verified 11/01/17 18:27 Home Meds: Home Meds Calcium Carbonate/Vitamin D3 [Calcium 600 + Vit D 200] 1 tab PO DAILY 12/23/16 [ History] Glucosam/Chondroit/C/Manganese [Cosamin Ds Capsule] 1 tab PO BID 12/23/16 [ History] Lisinopril/Hydrochlorothiazide [Lisinopril-Hctz 20-12.5 mg Tab] 1 tab PO DAILY 12/23/16 [History] Multivitamin [Multivitamins] 1 tab PO DAILY 12/23/16 [History] Niacin 1 tab PO BID 12/23/16 [History] Triamcinolone Acetonide [Kenalog 0.1% Crm] 1 strip TOP BID PRN 12/23/16 [History ] Vitamin B Complex [B Complex] 1 tab PO Q48H 12/23/16 [History] Acetaminophen [Extra Strength Non-Aspirin] 1,000 mg PO BID PRN 09/22/17 [History ] Aspirin [Lo-Dose Aspirin EC] 81 mg PO DAILY 11/01/17 [History] Past Medical History HEENT History: Reports: Impaired Vision Cardiovascular History: Reports: Hypertension Gastrointestinal History: Reports: Colon Polyp TAKER OFF HEMP FIBER History: Reports: Musculoskeletal History: Reports: Other (See Below) Other Musculoskeletal History: R knee pain Hematologic History: Reports: Blood Transfusion(s) - Infectious Disease History Infectious Disease History: Reports: Chicken Pox, Measles, Mumps - Past Surgical History GI Surgical History: Reports: Colonoscopy Female Surgical History: Reports: Hysterectomy Musculoskeletal Surgical History: Reports: Knee Replacement Other Musculoskeletal Surgeries/Procedures:: history steroid injection to right knee Social & Family History - Family History Family Medical History: Noncontributory - Tobacco Use Smoking Status *Q: Never Smoker - Caffeine Use Caffeine Use: Reports: None - Recreational Drug Use Recreational Drug Use: No ED ROS GENERAL - Review of Systems Review Of Systems: See Below Constitutional: Reports: Weakness, Fatigue. Denies: Fever, Chills HEENT: Reports: No Symptoms Respiratory: Reports: Shortness of Breath Cardiovascular: Reports: No Symptoms GI/Abdominal: Reports: Abdominal Pain, Diarrhea, Nausea, Vomiting : Reports: No Symptoms Musculoskeletal: Reports: No Symptoms Skin: Reports: No Symptoms Neurological: Reports: No Symptoms ED EXAM, GI/ABD - Physical Exam Exam: See Below Text/Narrative:: General: Female, in moderate discomfort secondary to nausea and vomiting, alert and oriented x3 HEENT: head is atraumatic normocephalic, eyes pupils equal round reactive to light, sclera clear no conjunctivitis appreciated. Ears tympanic membranes clear and pozo landmarks and light reflex are present bilaterally canals are clear. Nose no septal deviation, nares are clear, no blood present. Mouth mucosa is dry and pink no erythema or exudate noted in soft palate, tongue is midline uvula is midline, dentition is intact. Neck: Supple no thyromegaly no tracheal deviation. Nodes: Cervical nodes subclavicular nodes nontender no palpable lymphadenopathy noted. Lungs: clear to auscultation bilaterally with symmetrical respirations, no adventitious noise appreciated. CV: Regular rate and rhythm S1 and S2 appreciated no murmurs rubs or gallops noted. Abdomen: Soft, nontender, no palpable masses or organomegaly appreciated, no distention no guarding bowel sounds are present, . Neuro: Cranial nerves II through XII grossly intact Skin: Warm and dry, intact Extremities: No lower extremity edema appreciated, Course - Vital Signs Last Recorded V/S: Last Vital Signs Temp 98.0 F 11/01/17 21: Pulse 76 11/01/17 21:03 Resp 14 11/01/17 21:03 BP 160/77 H 11/01/17 21:03 Pulse Ox 98 11/01/17 21:03 - Orders/Labs/Meds Orders: Active Orders 24 hr Category Date Time Status Peripheral IV Care [RC] . DIRECTED Care 11/01/17 18:41 Active Lactated Ringers [Ringers, Lactated] 1,000 ml Med 11/01/17 18:45 Active IV ASDIRECTED Lactated Ringers [Ringers, Lactated] 1,000 ml Med 11/01/17 21:15 Active IV ASDIRECTED Sodium Chloride 0.9% [Saline Flush] Med 11/01/17 18:41 Active 10 ml FLUSH ASDIRECTED PRN ED Antiemetic Medication Reflex [OM.PC] Click to Edit Oth 11/01/17 18:41 Ordered Peripheral IV Insertion Adult [OM.PC] Urgent Oth 11/01/17 18:41 Ordered Medication Orders Lactated Ringer's (Ringers, Lactated) 1,000 mls @ 500 mls/hr IV ASDIRECTED [facility] Last Admin: 11/01/17 18:57 Dose: 500 mls/hr Lactated Ringer's (Ringers, Lactated) 1,000 mls @ 500 mls/hr IV ASDIRECTED [facility] Sodium Chloride (Saline Flush) 10 ml FLUSH ASDIRECTED PRN PRN Reason: Keep Vein Open Last Admin: 11/01/17 19:00 Dose: 10 ml Labs: Laboratory Tests 11/01/17 11/01/17 11/01/17 Range/Units 18:55 18:55 18:55 WBC 13.2 H (4.5-11.0) K/uL RBC 4.34 (3.30-5.50) M/uL Hgb 12.7 D (12.0-15.0) g/dL Hct 39.0 (36.0-48.0) % MCV 90 (80-98) fL MCH 29 (27-31) pg MCHC 33 (32-36) % Plt Count 335 (150-400) K/uL Neut % (Auto) 87 H (36-66) % Lymph % (Auto) 8 L (24-44) % [place] % (Auto) 4 (2-6) % Eos % (Auto) 0 L (2-4) % Baso % (Auto) 0 (0-1) % Sodium 146 (140-148) mmol/L Potassium 4.0 (3.6-5.2) mmol/L Chloride 107 (100-108) mmol/L Carbon Dioxide 31 (21-32) mmol/L Anion Gap 8.2 (5.0-14.0) mmol/L BUN 22 H (7-18) mg/dL Creatinine 1.2 H (0.6-1.0) mg/dL Est Cr Clr Drug Dosing 35.89 mL/min Estimated GFR (MDRD) 44 L (>60) Glucose 168 H (74-106) mg/dL Lactic Acid 1.8 (0.4-2.0) mmol/L Calcium 9.3 (8.5-10.1) mg/dL Total Bilirubin 0.4 (0.2-1.0) mg/dL AST 24 (15-37) U/L ALT 22 (12-78) U/L Alkaline Phosphatase 71 (46-116) U/L Troponin I < 0.017 (0.000-0.056) ng/mL Total Protein 7.1 (6.4-8.2) g/dL Albumin 3.5 (3.4-5.0) g/dL Globulin 3.6 H (2.3-3.5) g/dL Albumin/Globulin Ratio 1.0 L (1.2-2.2) Lipase 88 (73-393) U/L Urine Color Urine Appearance Urine pH (4.5-8.0) Ur Specific [place] (1.008-1.030) Urine Protein (NEGATIVE) mg/dL Urine Glucose (UA) (NEGATIVE) mg/dL Urine Ketones (NEGATIVE) mg/dL Urine Occult Blood (NEGATIVE) Urine Nitrite (NEGATIVE) Urine Bilirubin (NEGATIVE) Urine Urobilinogen (NORMAL) mg/dL Ur Leukocyte Esterase (NEGATIVE) Urine RBC (0-5) Urine WBC (0-5) Ur Epithelial Cells Amorphous Sediment Urine Bacteria Urine Mucus 11/01/17 Range/Units 21:23 WBC (4.5-11.0) K/uL RBC (3.30-5.50) M/uL Hgb (12.0-15.0) g/dL Hct (36.0-48.0) % MCV (80-98) fL MCH (27-31) pg MCHC (32-36) % Plt Count (150-400) K/uL Neut % (Auto) (36-66) % Lymph % (Auto) (24-44) % [place] % (Auto) (2-6) % Eos % (Auto) (2-4) % Baso % (Auto) (0-1) % Sodium (140-148) mmol/L Potassium (3.6-5.2) mmol/L Chloride (100-108) mmol/L Carbon Dioxide (21-32) mmol/L Anion Gap (5.0-14.0) mmol/L BUN (7-18) mg/dL Creatinine (0.6-1.0) mg/dL Est Cr Clr Drug Dosing mL/min Estimated GFR (MDRD) (>60) Glucose (74-106) mg/dL Lactic Acid (0.4-2.0) mmol/L Calcium (8.5-10.1) mg/dL Total Bilirubin (0.2-1.0) mg/dL AST (15-37) U/L ALT (12-78) U/L Alkaline Phosphatase (46-116) U/L Troponin I (0.000-0.056) ng/mL Total Protein (6.4-8.2) g/dL Albumin (3.4-5.0) g/dL Globulin (2.3-3.5) g/dL Albumin/Globulin Ratio (1.2-2.2) Lipase (73-393) U/L Urine Color Yellow Urine Appearance Slightly cloudy Urine pH 7.0 (4.5-8.0) Ur Specific [place] 1.015 (1.008-1.030) Urine Protein Negative (NEGATIVE) mg/dL Urine Glucose (UA) Normal (NEGATIVE) mg/dL Urine Ketones Negative (NEGATIVE) mg/dL Urine Occult Blood Negative (NEGATIVE) Urine Nitrite Negative (NEGATIVE) Urine Bilirubin Negative (NEGATIVE) Urine Urobilinogen Normal (NORMAL) mg/dL Ur Leukocyte Esterase Negative (NEGATIVE) Urine RBC Not seen (0-5) Urine WBC 0-5 (0-5) Ur Epithelial Cells Not seen Amorphous Sediment Many Urine Bacteria Few Urine Mucus Not seen Meds: Medications Generic Name Dose Route Start Last Admin Trade Name Freq PRN Reason Stop Dose Admin Lactated Ringer's 1,000 mls @ 500 mls/hr 11/01/17 18:45 11/01/17 18:57 Ringers, Lactated IV 500 mls/hr ASDIRECTED [facility] Administration Lactated Ringer's 1,000 mls @ 500 mls/hr 11/01/17 21:15 Ringers, Lactated IV ASDIRECTED [facility] Sodium Chloride 10 ml 11/01/17 18:41 11/01/17 19:00 Saline Flush FLUSH 10 ml ASDIRECTED PRN Administration Keep Vein Open Discontinued Medications Generic Name Dose Route Start Last Admin Trade Name Freq PRN Reason Stop Dose Admin Ondansetron HCl 4 mg 11/01/17 18:41 11/01/17 19:00 Zofran IVPUSH 11/01/17 18:42 4 mg ONETIME ONE Administration Departure - Departure Time of Disposition: 21:53 Disposition: Home, Self-Care 01 Condition: Good Clinical Impression: Gastroenteritis - Discharge Information Referrals: Jennifer Rivera PA [Primary Care Provider] - Forms: ED Department Discharge Additional Instructions: Continue to push fluids, use Zofran as needed to help control nausea and vomiting symptoms, Please followup with your primary care provider in 3-5 days if not better, please call return to the emergency department with worsening of symptoms. - My Orders Last 24 Hours: My Active Orders 11/01/17 18:41 Peripheral IV Care [RC] . DIRECTED Sodium Chloride 0.9% [Saline Flush] 10 ml FLUSH ASDIRECTED PRN ED Antiemetic Medication Reflex [OM.PC] Click to Edit Peripheral IV Insertion Adult [OM.PC] Urgent 11/01/17 18:45 Lactated Ringers [Ringers, Lactated] 1,000 ml IV ASDIRECTED 11/01/17 21:15 Lactated Ringers [Ringers, Lactated] 1,000 ml IV ASDIRECTED - Assessment/Plan Last 24 Hours: My Active Orders 11/01/17 18:41 Peripheral IV Care [RC] . DIRECTED Sodium Chloride 0.9% [Saline Flush] 10 ml FLUSH ASDIRECTED PRN ED Antiemetic Medication Reflex [OM.PC] Click to Edit Peripheral IV Insertion Adult [OM.PC] Urgent 11/01/17 18:45 Lactated Ringers [Ringers, Lactated] 1,000 ml IV ASDIRECTED 11/01/17 21:15 Lactated Ringers [Ringers, Lactated] 1,000 ml IV ASDIRECTED Plan: Assessment Acuity = acute Site and laterality = gastroenteritis Etiology = probable viral cause Manifestations = nausea, diarrhea Location of injury = Home Lab values = WBC elevated at 13.2 consistent leukocytosis probably related to dehydration, creatinine elevated at 1.2 consistent with acute renal failure stage G IIIB albumin low at 1.0 consistent hypoalbuminemia urinalysis unremarkable Plan I did review lab work with her she felt significantly better after Zofran and fluids she'll be discharged home with Zofran ODT 4 mg 1 tab by mouth 3 times a day when necessary follow-up primary care 3-5 days if not better This note was dictated using [employer] voice recognition software please call with any questions on syntax or sade.
[2017-11-01 21:03] VITALS: BP 160/77
== END 2017-11-01 22:15 | disposition home or self-care (01) ==
LOC: JP.ED 18:05
DX: K52.9 Noninfective gastroenteritis and colitis, unspecified (principal); I10 Essential (primary) hypertension; Z79.82 Long term (current) use of aspirin; Z79.899 Other long term (current) drug therapy
CPT/HCPCS: 36415; 80053; 81001; 83605; 83690; 84484; 85025; 96361; 96374; 99283; 99284; J2405; J7050; J7120

== ENCOUNTER 2017-12-16 21:07 | Emergency (ER) | payer MEDICARE, BC ==
[2017-12-17 01:17] VITALS: BP 145/69
[2017-12-17] MEDS ORDERED: Sodium Chloride 0.9% 10 ML Syringe FLUSH PRN (01:42)
--- NOTE | 2017-12-17 02:19 | EDM.PDOC ---
ED HPI GENERAL MEDICAL PROBLEM - General Chief Complaint: Lower Extremity Injury/Pain Stated Complaint: HIGH BP / LOSS FEELING IN R LEG Time Seen by Provider: 12/16/17 22:48 Source of Information: Reports: Patient History Limitations: Reports: No Limitations - History of Present Illness INITIAL COMMENTS - FREE TEXT/NARRATIVE: concerns of weakness, and balance issue this evening. Mrs. Garcia reports she was doing yard work all day, raking grass, hoeing, moving dirt and debri by hand. she finished up this evening, sat in her chair from 6 pm to 630pm, went to get up and right leg collapsed and she fell to the carpet. rested but felt wobbly, called her daughter to take her to ER for evaluation. now reports no symptoms, except for mild numbness on the bottom of her right foot. she walked into ER and room. no distress. Onset: Sudden Duration: Hour(s): Location: Reports: Generalized Improves with: Reports: None Worsens with: Reports: None Context: Reports: Activity, Exercise Associated Symptoms: Reports: Weakness (right side) - Related Data Allergies Allergy/AdvReac Type Severity Reaction Status Date / Time No Known Allergies Allergy Verified 12/16/17 22:42 Home Meds: Home Meds Calcium Carbonate/Vitamin D3 [Calcium 600 + Vit D 200] 1 tab PO DAILY 12/23/16 [ History] Glucosam/Chondroit/C/Manganese [Cosamin Ds Capsule] 1 tab PO BID 12/23/16 [ History] Lisinopril/Hydrochlorothiazide [Lisinopril-Hctz 20-12.5 mg Tab] 1 tab PO DAILY 12/23/16 [History] Multivitamin [Multivitamins] 1 tab PO DAILY 12/23/16 [History] Niacin 1 tab PO BID 12/23/16 [History] Triamcinolone Acetonide [Kenalog 0.1% Crm] 1 strip TOP BID PRN 12/23/16 [History ] Vitamin B Complex [B Complex] 1 tab PO Q48H 12/23/16 [History] Acetaminophen [Extra Strength Non-Aspirin] 1,000 mg PO BID PRN 09/22/17 [History ] Aspirin [Lo-Dose Aspirin EC] 81 mg PO DAILY 11/01/17 [History] Past Medical History HEENT History: Reports: Impaired Vision Cardiovascular History: Reports: Hypertension Gastrointestinal History: Reports: Colon Polyp Genitourinary History: Reports: None [employer]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 s/p RTKA 09-22-17 Psychiatric History: Reports: None Hematologic History: Reports: Blood Transfusion(s) - Infectious Disease History Infectious Disease History: Reports: Chicken Pox - Past Surgical History GI Surgical History: Reports: Colonoscopy Female Surgical History: Reports: Hysterectomy Musculoskeletal Surgical History: Reports: Knee Replacement Other Musculoskeletal Surgeries/Procedures:: history steroid injection to right knee Social & Family History - Family History Family Medical History: Noncontributory - Tobacco Use Smoking Status *Q: Never Smoker Second Hand Smoke Exposure: No - Caffeine Use Caffeine Use: Reports: Coffee - Recreational Drug Use Recreational Drug Use: No Review of Systems - Review of Systems Review Of Systems: See Below Constitutional: Reports: No Symptoms Eyes: Reports: No Symptoms Ears: Reports: No Symptoms Nose: Reports: No Symptoms Mouth/Throat: Reports: No Symptoms Respiratory: Reports: No Symptoms Cardiovascular: Reports: No Symptoms GI/Abdominal: Reports: No Symptoms Genitourinary: Reports: No Symptoms Musculoskeletal: Reports: No Symptoms Skin: Reports: No Symptoms Neurological: Reports: No Symptoms Psychiatric: Reports: No Symptoms ED EXAM, GENERAL - Physical Exam Exam: See Below Exam Limited By: No Limitations General Appearance: Alert, WD/WN, No Apparent Distress, Other (pleasant talkative female, no distress, walking in room, gait and balance intact) Eye Exam: Bilateral Eye: EOMI, PERRL Ears: Normal External Exam, Normal Canal, Hearing Grossly Normal, Normal TMs Ear Exam: Bilateral Ear: Auricle Normal, Canal Normal, TM normal Nose: Normal Inspection, Normal Mucosa, No Blood Throat/Mouth: Normal Inspection, Normal Lips, Normal Teeth, Normal Gums, Normal Oropharynx, Normal Voice, No Airway Compromise Head: Atraumatic, Normocephalic Neck: Normal Inspection, Supple, Non-Tender, Full Range of Motion Respiratory/Chest: No Respiratory Distress, Lungs Clear, Normal Breath Sounds, No Accessory Muscle Use, Chest Non-Tender Cardiovascular: Normal Peripheral Pulses, Regular Rate, Rhythm, No Edema, No Murmur GI/Abdominal: Normal Bowel Sounds, Soft, Non-Tender, No Organomegaly, No Distention, No Abnormal Bruit, No Mass Back Exam: Normal Inspection, Full Range of Motion, NT Extremities: Normal Inspection, Normal Range of Motion, Non-Tender, Normal Capillary Refill, No Pedal Edema Neurological: Alert, Oriented, CN II-XII Intact, Normal Cognition, Normal Gait, Normal Reflexes, No Motor/Sensory Deficits Psychiatric: Normal Affect, Normal Mood Skin Exam: Warm, Dry, Intact, Normal Color, No Rash Lymphatic: No Adenopathy Course - Vital Signs Last Recorded V/S: Last Vital Signs Temp 35.3 C 12/16/17 22:54 Pulse 78 12/17/17 00:58 Resp 16 12/17/17 00:58 BP 145/69 H 12/17/17 00:58 Pulse Ox 97 12/17/17 00:58 - Orders/Labs/Meds Orders: Active Orders 24 hr Category Date Time Status Head wo Cont [CT] Stat Exams 12/16/17 22:59 Taken Head wo Cont [CT] Stat Exams 12/17/17 00:00 Taken UA W/MICROSCOPIC [URIN] Urgent Lab 12/16/17 23:13 Ordered Sodium Chloride 0.9% [Saline Flush] Med 12/17/17 01:42 Active 10 ml FLUSH ASDIRECTED PRN Saline Lock Insert [OM.PC] Routine Oth 12/17/17 01:42 Ordered Medication Orders Sodium Chloride (Saline Flush) 10 ml FLUSH ASDIRECTED PRN PRN Reason: Keep Vein Open Labs: Laboratory Tests 12/16/17 12/16/17 12/16/17 Range/Units 23:13 23:13 23:13 WBC 6.7 (4.5-11.0) K/uL RBC 4.28 (3.30-5.50) M/uL Hgb 12.4 (12.0-15.0) g/dL Hct 38.0 (36.0-48.0) % MCV 89 (80-98) fL MCH 29 (27-31) pg MCHC 33 (32-36) % Plt Count 304 (150-400) K/uL Neut % (Auto) 58 (36-66) % Lymph % (Auto) 25 (24-44) % [place] % (Auto) 14 H (2-6) % Eos % (Auto) 2 (2-4) % Baso % (Auto) 1 (0-1) % Sodium 143 (140-148) mmol/L Potassium 3.9 (3.6-5.2) mmol/L Chloride 105 (100-108) mmol/L Carbon Dioxide 29 (21-32) mmol/L Anion Gap 9.4 (5.0-14.0) mmol/L BUN 28 H (7-18) mg/dL Creatinine 1.0 (0.6-1.0) mg/dL Est Cr Clr Drug Dosing 42.20 mL/min Estimated GFR (MDRD) 54 L (>60) Glucose 105 (74-106) mg/dL Calcium 9.1 (8.5-10.1) mg/dL Urine Color Yellow Urine Appearance Clear Urine pH 7.0 (4.5-8.0) Ur Specific [place] 1.015 (1.008-1.030) Urine Protein Negative (NEGATIVE) mg/dL Urine Glucose (UA) Normal (NEGATIVE) mg/dL Urine Ketones Negative (NEGATIVE) mg/dL Urine Occult Blood Negative (NEGATIVE) Urine Nitrite Negative (NEGATIVE) Urine Bilirubin Negative (NEGATIVE) Urine Urobilinogen Normal (NORMAL) mg/dL Ur Leukocyte Esterase Negative (NEGATIVE) Urine RBC 0-5 (0-5) Urine WBC 0-5 (0-5) Ur Epithelial Cells Few Amorphous Sediment Not seen Urine Bacteria Few Urine Mucus Not seen Meds: Medications Generic Name Dose Route Start Last Admin Trade Name Freq PRN Reason Stop Dose Admin Sodium Chloride 10 ml 12/17/17 01:42 Saline Flush FLUSH ASDIRECTED PRN Keep Vein Open - Re-Assessments/Exams Free Text/Narrative Re-Assessment/Exam: 12/17/17 02:26 labs negative for acute pathology head CT x2 to rule any acute process, noted stable, calcification. reviewed with Mrs. Garcia will discharge to home, follow up with Primary Care. Departure - Departure Time of Disposition: 02:28 Disposition: Home, Self-Care 01 Condition: Good Clinical Impression: Exhaustion due to overexertion Qualifiers: Encounter type: initial encounter Qualified Code(s): T73.3XXA - Exhaustion due to excessive exertion, initial encounter - Discharge Information Referrals: Jennifer Rivera PA [Primary Care Provider] - Forms: ED Department Discharge Care Plan Goals: exhaustion due to over exertion -CT scan negative for acute process -labs negative -exam normal advise to rest, reduce activities for the next 3 to 5 days, then increase slowly , drink atleast to 20 ounces water per day advise to follow up with Primary Care for recheck in next 3 to 5 days return to ER if symptoms return or has any concerns. - Problem List & Annotations (1) Exhaustion due to overexertion SNOMED Code(s): 62460071 Code(s): T73.3XXA - EXHAUSTION DUE TO EXCESSIVE EXERTION, INITIAL ENCOUNTER Status: Acute Priority: Medium Current Visit: Yes Qualifiers: Encounter type: initial encounter Qualified Code(s): T73.3XXA - Exhaustion due to excessive exertion, initial encounter - Problem List Review Problem List Initiated/Reviewed/Updated: Yes - My Orders Last 24 Hours: My Active Orders 12/16/17 22:59 Head wo Cont [CT] Stat 12/16/17 23:13 UA W/MICROSCOPIC [URIN] Urgent 12/17/17 00:00 Head wo Cont [CT] Stat 12/17/17 01:42 Sodium Chloride 0.9% [Saline Flush] 10 ml FLUSH ASDIRECTED PRN Saline Lock Insert [OM.PC] Routine - Assessment/Plan Last 24 Hours: My Active Orders 12/16/17 22:59 Head wo Cont [CT] Stat 12/16/17 23:13 UA W/MICROSCOPIC [URIN] Urgent 12/17/17 00:00 Head wo Cont [CT] Stat 12/17/17 01:42 Sodium Chloride 0.9% [Saline Flush] 10 ml FLUSH ASDIRECTED PRN Saline Lock Insert [OM.PC] Routine Plan: exhaustion due to over exertion -CT scan negative for acute process -labs negative -exam normal advise to rest, reduce activities for the next 3 to 5 days, then increase slowly , drink atleast to 20 ounces water per day advise to follow up with Primary Care for recheck in next 3 to 5 days return to ER if symptoms return or has any concerns.
== END 2017-12-17 02:30 | disposition home or self-care (01) ==
LOC: JP.ED 21:07
DX: T73.3XXA Exhaustion due to excessive exertion, initial encounter (principal); I10 Essential (primary) hypertension; Z79.82 Long term (current) use of aspirin; Z79.899 Other long term (current) drug therapy
CPT/HCPCS: 36415; 70450; 80048; 81001; 85025; 99284-25

== ENCOUNTER 2020-10-01 06:25 | Day surgery (SDC) | payer MEDICARE ==
[2020-10-01] MEDS ORDERED: fentaNYL 100 MCG/2 ML SDV ONE (07:11)
[2020-10-01] MEDS ORDERED: Midazolam 1 MG/ML 2 ML SDV ONE (07:11)
[2020-10-01] MEDS ORDERED: Propofol 200 MG/20 ML SDV ONE (07:12)
[2020-10-01] MEDS: Dextrose 5%-Lactated Ringers 1,000 ML IV SCH (07:14)
[2020-10-01] MEDS: Meropenem 500 MG in Sodium Chloride 0.9% 50 ML IV ONE (07:44)
[2020-10-01 09:29] VITALS: BP 134/65; PULSE 62
--- NOTE | 2020-10-02 09:39 | OR ---
DATE OF PROCEDURE: 10/01/2020 SURGEON: Manny Galindo MD PREOPERATIVE DIAGNOSIS: Positive Cologuard examination along with family history (father) with colon cancer. POSTOPERATIVE DIAGNOSES: 1. Positive Cologuard examination along with family history (father) with colon cancer. 2. Normal colonoscopic examination. OPERATIVE PROCEDURE: Flexible colonoscopy. ANESTHESIA: IV sedation. INDICATION FOR PROCEDURE: A 80-year-old presenting with a positive Cologuard examination. She does have a family history of a father having colon carcinoma. Plan is to proceed with the above colonoscopy with biopsies and/or polypectomy as indicated. Potential risks of the procedure including bleeding and perforation were discussed, and the patient wishes to proceed. DETAILS OF PROCEDURE: The patient was taken to the operating room and placed in a left lateral decubitus position. IV sedation was administered after which the initial digital exam was performed, it was unremarkable. Colonoscope was then passed into the rectum with retroflexion revealing uncomplicated hemorrhoidal columns. Scope was then eventually passed to the level of the cecum. Prep was quite good, only a small amount of liquid stool present to that level. No abnormalities were noted. Specifically, there were no diverticula, no areas of colitis, no polyps or other signs of neoplasia. Scope was then withdrawn and the above findings reconfirmed and the procedure then concluded. The patient was taken to the recovery room in satisfactory condition. Depending on the patient's health status, a followup colonoscopy should be considered in 5 years given the family history of colon carcinoma. Manny Galindo MD /[id number]
== END 2020-10-01 09:48 | disposition home or self-care (01) ==
LOC: JP.SDS 06:25
PROVIDERS: ATTEND Surgery
DX: K64.9 Unspecified hemorrhoids (principal); Z80.0 Family history of malignant neoplasm of digestive organs; I10 Essential (primary) hypertension; Z79.899 Other long term (current) drug therapy
CPT/HCPCS: J2185; J2250; J2704; J3010; J7121

== ENCOUNTER 2021-05-02 06:33 | Day surgery (SDC) | payer MEDICARE ==
[2021-05-02] MEDS ORDERED: Sodium Chloride 0.9% 10 ML Syringe FLUSH PRN (07:00)
[2021-05-02] MEDS ORDERED: Ondansetron 4 MG/2 ML SDV IVPUSH ONE (07:24)
[2021-05-02 08:30] VITALS: BP 161/91; PULSE 76
--- NOTE | 2021-05-02 09:12 | OR ---
DATE OF PROCEDURE: 05/02/2021 SURGEON: Shanti Torrez MD POSTOPERATIVE CARE: Postoperative care will be provided mainly at the [address] [place] [address] [facility] [place] in conjunction with [facility]. PREOPERATIVE DIAGNOSIS: Cataract, left eye. POSTOPERATIVE DIAGNOSIS: Cataract, left eye. PROCEDURE: Phacoemulsification with intraocular lens placement, left eye. ANESTHESIA: Topical and intracameral. ESTIMATED BLOOD LOSS: Minimal. COMPLICATIONS: None. PATHOLOGY SPECIMENS: None. SURGICAL FINDINGS: None. INDICATION FOR PROCEDURE: The patient is a 80-year-old female with history of a visually significant cataract in the left eye, which interfered with activities of daily living. This consisted of a nuclear sclerosis cataract. Following careful discussion of the risks, benefits and alternatives to cataract extraction with intraocular lens placement including blindness and , the patient elected to proceed, and informed, written consent was obtained prior to the procedure. DESCRIPTION OF THE PROCEDURE: The patient was previously identified, and a emeterio placed above the left eye. All sources, including the patient, indicated that the left eye was the correct eye. The patient was subsequently taken to the operating room where standard monitors were applied. The patient was then prepped and draped in the usual sterile fashion for ophthalmic surgery. Attention was first directed at the 12 o'clock position where a paracentesis port was fashioned. Shugar solution followed by Viscoat was instilled into the eye. Attention was then directed to the 8:30 position where a triplanar incision was made in a near-clear manner using a keratome. A continuous capsulorrhexis was then made using a combination of the cystotome and Utrata forceps. Hydrodissection was achieved using a balanced salt solution, and the lens rotated nicely. Phacoemulsification was then done using a modified [id number] technique without complication. Phaco time was 6.56 CDE. The remaining cortex was removed using the irrigation/aspiration handpiece. Provisc was then instilled into the eye. A Technis lens, model DCB00, at 22.0 diopters was then placed in the capsular bag using an [place] injector. The remaining viscoelastic was removed using the irrigation/aspiration forceps. All wounds were then checked and found to be watertight. The lid speculum and drapes were removed. Maxitrol ointment was placed in the patient's left eye, and the eye was shielded. The patient tolerated the procedure well. The patient was instructed to follow up tomorrow. All needle and sponge counts were correct at the end of the procedure. There were no surgical findings. Shanti Torrez MD /[id number]
== END 2021-05-02 08:40 | disposition home or self-care (01) ==
LOC: JP.SDS 06:33
PROVIDERS: ATTEND Ophthalmology
DX: H25.12 Age-related nuclear cataract, left eye (principal); I10 Essential (primary) hypertension; E78.5 Hyperlipidemia, unspecified
CPT/HCPCS: 66984; J2405; V2632

== ENCOUNTER 2021-05-16 06:43 | Day surgery (SDC) | payer MEDICARE ==
[2021-05-16] MEDS ORDERED: Ondansetron 4 MG/2 ML SDV IVPUSH ONE (06:56)
[2021-05-16] MEDS ORDERED: Sodium Chloride 0.9% 10 ML Syringe FLUSH PRN (07:00)
[2021-05-16 08:21] VITALS: BP 178/95; PULSE 68
--- NOTE | 2021-05-21 12:13 | OR ---
DATE OF PROCEDURE: 05/16/2021 SURGEON: Shanti Torrez MD POSTOPERATIVE CARE: Postoperative care will be provided mainly at the [address] [place] [address] [facility] in conjunction with [facility]. PREOPERATIVE DIAGNOSIS: Cataract, right eye. POSTOPERATIVE DIAGNOSIS: Cataract, right eye. PROCEDURE: Phacoemulsification with intraocular lens placement, right eye. ANESTHESIA: Topical and intracameral. ESTIMATED BLOOD LOSS: Minimal. COMPLICATIONS: None. PATHOLOGY SPECIMENS: None. SURGICAL FINDINGS: None. INDICATION FOR PROCEDURE: The patient is an 81-year-old female with history of a visually significant cataract in the right eye, which interfered with activities of daily living. This consisted of a nuclear sclerosis cataract. Following careful discussion of the risks, benefits and alternatives to cataract extraction with intraocular lens placement including blindness and , the patient elected to proceed, and informed, written consent was obtained prior to the procedure. DESCRIPTION OF THE PROCEDURE: The patient was previously identified, and a emeterio placed above the right eye. All sources, including the patient, indicated that the right eye was the correct eye. The patient was subsequently taken to the operating room where standard monitors were applied. The patient was then prepped and draped in the usual sterile fashion for ophthalmic surgery. Attention was first directed at the 12 o'clock position where a paracentesis port was fashioned. Shugar solution followed by Viscoat was instilled into the eye. Attention was then directed to the 8:30 position where a triplanar incision was made in a near-clear manner using a keratome. A continuous capsulorrhexis was then made using a combination of the cystotome and Utrata forceps. Hydrodissection was achieved using a balanced salt solution, and the lens rotated nicely. Phacoemulsification was then done using a modified buwzkr-pyg-ountece technique without complication. Phaco time was 4.89 CDE. The remaining cortex was removed using the irrigation/aspiration handpiece. Provisc was then instilled into the eye. A Technis lens, model PCB00, at 21.5 diopters was then placed in the capsular bag using an [place] injector. The remaining viscoelastic was removed using the irrigation/aspiration forceps. All wounds were then checked and found to be watertight. The lid speculum and drapes were removed. Maxitrol ointment was placed in the patient's right eye, and the eye was shielded. The patient tolerated the procedure well. The patient was instructed to follow up tomorrow. All needle and sponge counts were correct at the end of the procedure. There were no surgical findings. Shanti Torrez MD /[id number]
== END 2021-05-16 08:25 | disposition home or self-care (01) ==
LOC: JP.SDS 06:43
PROVIDERS: ATTEND Ophthalmology
DX: H25.11 Age-related nuclear cataract, right eye (principal); I10 Essential (primary) hypertension
CPT/HCPCS: 66984; J2405; V2632